=== PATIENT | male | born 1970 | race Two or more races ===

== ENCOUNTER 2019-08-19 12:09 | Emergency (ER) | payer OTHER ==
[~2019-08-19] VITALS: Ht 165.1 cm; Wt 72.0 kg
[2019-08-19 12:43] VITALS: BP 126/83
--- NOTE | 2019-08-19 13:16 | PHYS DOC ---
Past Medical History Past Medical History: No Pertinent History Additional Past Medical Histor: reports no health history (LORI RICHARDSON TACTICAL RESPONSE GROUP OFFICER) Past Surgical History: No Surgical History (LORI RICHARDSON TACTICAL RESPONSE GROUP OFFICER) Smoking Status: Never Smoker Alcohol Use: None (LORI RICHARDSON TACTICAL RESPONSE GROUP OFFICER) General Adult EDM: Chief Complaint: SORE THROAT HPI: HPI: Patient is a 49 year old male who presents with states that he has had a cough, sore throat, runny nose and perceived fever at home. Patient is afebrile here and his vital signs are within normal limits. He states that he is not been around anyone else that is covered positive or has symptoms. Patient states he has not been taking any medications for his symptoms. He states he does not take any medications daily reports no medical history. (LORI RICHARDSON TACTICAL RESPONSE GROUP OFFICER) Review of Systems: Review of Systems: Constitutional: fever or chills. [] HENT: Denies nasal congestion. sore throat. [] Respiratory: cough or denies shortness of breath. [] (LORI RICHARDSON TACTICAL RESPONSE GROUP OFFICER) Heart Score: Risk Factors: Risk Factors: DM, Current or recent (<one month) smoker, HTN, HLP, family history of CAD, obesity. Risk Scores: Score 0 - 3: 2.5% MACE over next 6 weeks - Discharge Home Score 4 - 6: 20.3% MACE over next 6 weeks - Admit for Clinical Observation Score 7 - 10: 72.7% MACE over next 6 weeks - Early Invasive Strategies ([facility]ON[facility] OFFICER) Physical Exam: PE: Constitutional: Well developed, well nourished, no acute distress, non-toxic appearance. [] HENT: Normocephalic, atraumatic, bilateral external ears normal, oropharynx moist, no oral exudates, nose normal. [] Eyes: PERRLA, EOMI, conjunctiva normal, no discharge. [] Neck: Normal range of motion, no tenderness, supple, no stridor. [] Cardiovascular:Heart rate regular rhythm, no murmur [] Lungs & Thorax: Bilateral breath sounds clear to auscultation [] Abdomen: Bowel sounds normal, soft, no tenderness, no masses, no pulsatile masses. [] Skin: Warm, dry, no erythema, no rash. [] Back: No tenderness, no CVA tenderness. [] Extremities: No tenderness, no cyanosis, no clubbing, ROM intact, no edema. [] Neurologic: Alert and oriented X 3, normal motor function, normal sensory function, no focal deficits noted. [] Psychologic: Affect normal, judgement normal, mood normal. [] Normal Physical Exam (LORI RICHARDSON APRN) Current Patient Data: Vital Signs: Vital Signs Date Time Temp Pulse Resp B/P (MAP) Pulse Ox O2 Delivery O2 Flow Rate FiO2 08/19/19 12:43 98.7 75 16 126/83 (97) 98 Room Air 98.7 (LORI RICHARDSON APRN) EKG: EKG: [] (LORI RICHARDSON APRN) Radiology/Procedures: Radiology/Procedures: [] Impression: [facility] [address] [place] [address] IMAGING REPORT Signed PATIENT: CYNTHIA PEARSON ACCOUNT: [id number] : 1970 LOCATION: ER AGE: 49 SEX: M EXAM STATUS: REG ER ORD. PHYSICIAN: LORI RICHARDSON APRN REASON: soa, cough PROCEDURE: PORTABLE CHEST 1V PORTABLE CHEST 1V 08/19/2019 12:52 PM INDICATION: Shortness of air, cough COMPARISON: None available TECHNIQUE: Portable frontal view of the chest is provided. FINDINGS: The cardiomediastinal silhouette is within normal limits. Lungs are clear. Biapical pleural parenchymal scarring is noted. There are no significant pleural effusions. There is no pulmonary vascular congestion. No pneumothorax. No suspicious osseous abnormality. IMPRESSION: There is no acute cardiopulmonary process. Electronically signed by: Ignacio eHrrera MD (08/19/2019 1:29 PM) [facility] DICTATED and SIGNED BY: IGNACIO HERRERA MD DATE: 08/19/19 1329 (LORI RICHARDSON APRN) Course & Med Decision Making: Course & Med Decision Making Pertinent Labs and Imaging studies reviewed. (See chart for details) Patient denies chest pain, shortness of breath, nausea, vomiting, diarrhea, headache, dizziness, vision changes, numbness or tingling. Alert and oriented. Speaks in full clear sentences. Skin pink warm and dry. Ambulatory with a steady gait. Lungs are clear to auscultation all lobes. Patient is wanting to be tested for COVID-19. Patient is stable and he can follow-up with 1 of the outpatient COVID testing clinics. Patient states he works at a [employer]. Throat is reddened but there is no swelling or exudates. [] (LORI RICHARDSON APRN) Dragon Disclaimer: Dragon Disclaimer: This electronic medical record was generated, in whole or in part, using a voice recognition dictation system. (LORI RICHARDSON APRN) Departure Departure Impression: Primary Impression: Sore throat Additional Impression: Rhinorrhea Disposition: 01 HOME, SELF-CARE Condition: STABLE Referrals: NO PCP (PCP) Patient Instructions: Sore Throat Additional Instructions: Take medication as prescribed and with food. Take [id number] cold and cough medication. Take Tylenol or ibuprofen for your pain. Follow-up with primary care physician. He can go to any of the outpatient clinic areas with a test for COVID-19 to be tested. Return to the emergency room for severe shortness of breath or chest pain. Scripts Azithromycin (AZITHROMYCIN TABLET) 250 Mg Tablet 1 PKG PO UD for 5 Days, #6 TAB 0 Refills 2 the first day followed by 1 for days 2-5 Prov: LORI RICHARDSON APRN 08/19/19 Justicifation of Admission Dx: Justifications for Admission: Justification of Admission Dx: N/A (LORI RICHARDSON APRN) Attending Signature Attending Signature I have participated in the care of this patient and I have reviewed and agree with all pertinent clinical information above including history, exam, and recommendations. (DILSHAD PELLETIER DO) LORI RICHARDSON APRN Aug 19, 2019 13:16 DILSHAD PELLETIER DO Aug 19, 2019 14:05
--- NOTE | 2019-08-19 13:32 | RAD ---
PORTABLE CHEST 1V 08/19/2019 12:52 PM INDICATION: Shortness of air, cough COMPARISON: None available TECHNIQUE: Portable frontal view of the chest is provided. FINDINGS: The cardiomediastinal silhouette is within normal limits. Lungs are clear. Biapical pleural parenchymal scarring is noted. There are no significant pleural effusions. There is no pulmonary vascular congestion. No pneumothorax. No suspicious osseous abnormality. IMPRESSION: There is no acute cardiopulmonary process. Electronically signed by: Kaela Sutton MD (08/19/2019 1:29 PM) [facility]
[2019-08-19] MEDS ORDERED: AZIT250T6 PO (13:53)
== END 2019-08-19 14:06 | disposition home or self-care (01) ==
LOC: ER 12:09
DX: J02.9 Acute pharyngitis, unspecified (principal); J34.89 Other specified disorders of nose and nasal sinuses; R05 Cough; R09.89 Other specified symptoms and signs involving the circulatory and respiratory systems
CPT/HCPCS: 71045; 87070; 87880; 99284

== ENCOUNTER 2019-08-27 13:29 | Emergency (ER) | payer OTHER ==
[~2019-08-27] VITALS: Ht 160 cm; Wt 59.0 kg
[~2019-08-27 13:29] MED LIST: AZIT250T6 PO
[2019-08-27 14:13] LABS: BASO % 1 % (0-3); EOS % 0 % (0-3); HEMATOCRIT 39.6 % (39.0-53.0); HEMOGLOBIN 13.5 g/dL (13.0-17.5); LYMPH # 1.2 x10^3/uL (1.0-4.8); LYMPH % 35 % (24-48); MEAN CORPUSCULAR HEMOGLOBIN 27 pg (25-35); MEAN CORPUSCULAR HGB CONC 34 g/dL (31-37); MEAN CORPUSCULAR VOLUME 80 fL (79-100); MONO # 0.3 x10^3/uL (0.0-1.1); MONO % 7 % (0-9); NEUT % 58 % (31-73); PLATELET COUNT 169 x10^3/uL (140-400); RED BLOOD COUNT 4.98 x10^6/uL (4.30-5.70); RED CELL DISTRIBUTION WIDTH 13.2 % (11.5-14.5); WHITE BLOOD COUNT 3.5 x10^3/uL (4.0-11.0)
[2019-08-27 14:20] LABS: BASE EXCESS COOX -1 mmol/L (-3-3); HCO3 COOX 23 mmol/L (21-28); METHEMOGLOBIN 0.4 % (0.0-1.9); OXYHEMOGLOBIN 94.6 %; PCO2 COOX 35 mmHg (35-46); PO2 COOX 73 mmHg (75-108); SAT O2 COOX 95 % (92-99)
--- NOTE | 2019-08-27 14:25 | PHYS DOC ---
Past Medical History Past Medical History: No Pertinent History Additional Past Medical Histor: reports no health history Past Surgical History: No Surgical History Smoking Status: Never Smoker Alcohol Use: None General Adult EDM: Chief Complaint: SHORTNESS OF BREATH HPI: HPI: Patient is a 49 year old male who presents with positive cover test today. He states last 4 days he says shortness of air and chest pain with cough only. He was here on August 18 with rhinorrhea and a sore throat and given azithromycin. He states he took the azithromycin. He states other people in the house also have a sore throat and rhinorrhea. He denies any past medical history and takes no medications daily. Patient denies nausea, vomiting, diarrhea, headache, dizziness, syncope, numbness or tingling, vision changes, fever. He states he has had the chills. Patient is 96% on room air. Review of Systems: Review of Systems: Constitutional: Denies fever or chills. [] Eyes: Denies change in visual acuity. [] HENT: Denies nasal congestion or sore throat. [] Respiratory: Denies cough. + shortness of breath. [] Cardiovascular: chest pain with cough or denies edema. [] GI: Denies abdominal pain, nausea, vomiting, bloody stools or diarrhea. [] : Denies dysuria. [] Musculoskeletal: Denies back pain or joint pain. [] Integument: Denies rash. [] Neurologic: Denies headache, focal weakness or sensory changes. [] Endocrine: Denies polyuria or polydipsia. [] Lymphatic: Denies swollen glands. [] Psychiatric: Denies depression or anxiety. [] Heart Score: HEART Score for Chest Pain: HEART Score for Chest Pain Response (Comments) Value History Slighlty/Non-Suspicious 0 ECG Normal 0 Age >45 - < 65 1 Risk Factors No Risk Factors 0 Troponin < Normal Limit 0 Total 1 Risk Factors: Risk Factors: DM, Current or recent (<one month) smoker, HTN, HLP, family history of CAD, obesity. Risk Scores: Score 0 - 3: 2.5% MACE over next 6 weeks - Discharge Home Score 4 - 6: 20.3% MACE over next 6 weeks - Admit for Clinical Observation Score 7 - 10: 72.7% MACE over next 6 weeks - Early Invasive Strategies Allergies: Allergies: Allergies Coded Allergies Type Severity Reaction Last Updated Verified No Known Drug Allergies 08/27/19 No Physical Exam: PE: Constitutional: Well developed, well nourished, no acute distress, non-toxic appearance. [] HENT: Normocephalic, atraumatic, bilateral external ears normal, oropharynx moist, no oral exudates, nose normal. [] Eyes: PERRLA, EOMI, conjunctiva normal, no discharge. [] Neck: Normal range of motion, no tenderness, supple, no stridor. [] Cardiovascular:Heart rate regular rhythm, no murmur [] Lungs & Thorax: Bilateral upper breath sounds clear and lower diminished to auscultation [] Abdomen: Bowel sounds normal, soft, no tenderness, no masses, no pulsatile mass es. [] Skin: Warm, dry, no erythema, no rash. [] Back: No tenderness, no CVA tenderness. [] Extremities: No tenderness, no cyanosis, no clubbing, ROM intact, no edema. [] Neurologic: Alert and oriented X 3, normal motor function, normal sensory function, no focal deficits noted. [] Psychologic: Affect normal, judgement normal, mood normal. [] Current Patient Data: Labs: Laboratory Tests Test 08/27/19 13:55 White Blood Count 3.5 x10^3/uL (4.0-11.0) L Red Blood Count 4.98 x10^6/uL (4.30-5.70) Hemoglobin 13.5 g/dL (13.0-17.5) Hematocrit 39.6 % (39.0-53.0) Mean Corpuscular Volume 80 fL (79-100) Mean Corpuscular Hemoglobin 27 pg (25-35) Mean Corpuscular Hemoglobin Concent 34 g/dL (31-37) Red Cell Distribution Width 13.2 % (11.5-14.5) Platelet Count 169 x10^3/uL (140-400) Neutrophils (%) (Auto) 58 % (31-73) Lymphocytes (%) (Auto) 35 % (24-48) Monocytes (%) (Auto) 7 % (0-9) Eosinophils (%) (Auto) 0 % (0-3) Basophils (%) (Auto) 1 % (0-3) Neutrophils # (Auto) 2.0 x10^3/uL (1.8-7.7) Lymphocytes # (Auto) 1.2 x10^3/uL (1.0-4.8) Monocytes # (Auto) 0.3 x10^3/uL (0.0-1.1) Eosinophils # (Auto) 0.0 x10^3/uL (0.0-0.7) Basophils # (Auto) 0.0 x10^3/uL (0.0-0.2) Laboratory Tests 08/27/19 13:55 Vital Signs: Vital Signs Date Time Temp Pulse Resp B/P (MAP) Pulse Ox O2 Delivery O2 Flow Rate FiO2 08/27/19 13:45 98.6 83 22 119/82 (94 95 Room Air 98.6 EKG: EK and read by Dr Lorenz as NSR and no STEMI[] Radiology/Procedures: Radiology/Procedures: [] Impression: [facility] [address] [place], [place] [id number] IMAGING REPORT Signed PATIENT: CYNTHIA PEARSON ACCOUNT: [id number] : 1970 LOCATION: ER AGE: 49 SEX: M EXAM STATUS: REG ER ORD. PHYSICIAN: LORI RICHARDSON APRN REASON: SOA, COVID + PROCEDURE: PORTABLE CHEST 1V INDICATION: Reason: SOA, COVID + / Spl. Instructions: / History: COMPARISON: August 19, 2019 FINDINGS: Single view of chest obtained. Hypoexpanded examination. There is some interstitial prominence bilaterally. There is now some apparent nodular opacities including in the left mid to lower lung as well as hazy opacity right lung base. IMPRESSION: * Mild interstitial and patchy nodular opacities. Could be secondary to the focal infiltrate although given the interstitial component mild pulmonary vascular congestion is not excluded. Electronically signed by: Denzel Dolan MD (08/27/2019 2:32 PM) [id number] DICTATED and SIGNED BY: DENZEL DOLAN MD DATE: 08/27/19 1432 Course & Med Decision Making: Course & Med Decision Making Pertinent Labs and Imaging studies reviewed. (See chart for details) COVID-19 CRITERIA: The patient was evaluated during the global COVID-19 pandemic, and that diagnosis was suspected/considered upon their initial presentation. Their evaluation, treatment and testing was consistent with current guidelines for patients who present with complaints or symptoms that may be related to COVID-19. Alert and oriented. Ambulatory with a steady gait. Speaks in full complete sentences. Abdomen soft and nontender. Lungs are clear in upper lobes and diminished in lower lobes. No extremity edema. Dr Lorenz states to not put the patient on another z pack and to put him on doxycycline. I will also put the patient on a medrol dose pack as this is also proven to be effective. Hemodynamically stable. Patient is not hypoxic. Patient to go home and quarantine. Patient to follow-up with primary care prov ronelr. [] Mary Ellen Disclaimer: Mary Ellen Disclaimer: This electronic medical record was generated, in whole or in part, using a voice recognition dictation system. COVID-19 Patient Risks: Age 65 or older: No Sign of co-morbidity: No Exp to person + for COVID: No Exp to PUI: No Travel from affected area: No Lower respiratory symptoms: Yes Fever: No Other: Yes Comments: + COVID TEST PPE Use: Full PPE with N95 mask or PAPR: Yes Departure Departure Impression: Primary Impression: COVID-19 Additional Impressions: Cough Shortness of breath Pneumonia Qualified Codes: J18.9 - Pneumonia, unspecified organism Disposition: 01 HOME, SELF-CARE Condition: STABLE Referrals: UNKNOWN PCP NAME (PCP) Patient Instructions: Pneumonia, Adult Additional Instructions: You have been tested for or diagnosed with COVID-19. It is an infection caused by a new type of coronavirus. COVID-19 will cause cold-like or mild flu symptoms in most. It can cause more severe symptoms like problems breathing in some. There is no treatment for COVID-19. The body will clear the infection over time. Self-care will help to ease discomfort. Steps to Take: Self-Care Rest as needed. Healthy habits may help you feel better. Steps include: Choose healthy foods including fruits and vegetables. Drink water throughout the day. Get plenty of sleep each night. If you smoke, try to quit. It may ease breathing. Avoid alcohol. Keep Others Healthy The virus can spread to others. Droplets are released every time you sneeze or cough. The droplets can get into the mouth, nose, or eyes of people near you and lead to infection. To lower the chances of spreading COVID-19 to others: Stay at home until your doctor has said it is safe to leave. If you tested positive this will mean staying isolated until both of the following are true: At least 7 days have passed since the start of illness. You are free of fever for at least 72 hours without the use of medicine. During this time: - Avoid public areas, events, or transportation. Do not return to work or school until your doctor has said it is safe to do so. - Call ahead if you need to go to a medical center. Let them know you may have COVID-19. It will help them guide you where to go. They may also ask you to wear a facemask when you come to the office. - If you call for emergency medical services, let them know you may have COVID- 19. While at home: - Try to avoid close contact with others. Stay about 6 feet away. - If possible, spend most of your time in a separate room from others. - Use a face mask if you will be in close contact with others such as sharing a room or vehicle. - Have someone wipe down common surfaces in the home. Use household coupon collection clerk every day on areas like doorknobs, counters, or sinks. - Cough or sneeze into a tissue. Throw the tissue away right after use. If a tissue is not available, cough or sneeze into your elbow. - Wash your hands often. Wash them after sneezing or coughing. Use soap and water and wash for at least 20 seconds. Alcohol based hand upholstery cleaner can be used if soap and water is not available. - Do not prepare food for others. Avoid sharing personal items like forks, spoons, or toothbrushes. - Avoid close contact with pets while you are sick. There is no evidence of the virus passing to pets. This is a safety step until more is known about this virus. Isolation can be frustrating. Social interaction can help. Keep in touch with friends and family through phone and tech options. You can still interact with others in your home, just keep a safe distance of about 6 feet. Follow-up: Your doctors office will check in with you to see if there are any changes in your health. You may be asked to keep track of symptoms to share with them. They will also let you know when you are clear to be in public again. Problems to Look Out For: Contact your doctor if your recovery is not going as you expect. Get emergency care if you have problems such as: - Trouble breathing - Nonstop chest pain or pressure - Changes in awareness, confusion, or problems waking - Lips or face have bluish color - Worsening of symptoms If you think you have an emergency, call for emergency medical services right away. As taken from [facility] Methylprednisolone (MEDROL) 4 Mg Tab.ds.pk 1 PKG PO UD, #1 PKG Prov: LORI RICHARDSON APRN 08/27/19 Albuterol Sulfate (Proair Hfa) 8.5 Gm Hfa.aer.ad 1 PUFF INH PRN Q6HRS PRN for SHORTNESS OF BREATH, #1 INHALER Prov: LORI RICHARDSON APRN 08/27/19 Doxycycline Hyclate (DOXYCYCLINE HYCLATE) 100 Mg Tablet 1 TAB PO BID, #14 TAB Prov: LORI RICHARDSON APRN 08/27/19 Justicifation of Admission Dx: Justifications for Admission: Justification of Admission Dx: N/A LORI RICHARDSON APRN Aug 27, 2019 14:25
[2019-08-27 14:26] LABS: CREATININE 0.9 mg/dL (0.7-1.3); GFR 89.7; POTASSIUM 3.5 mmol/L (3.5-5.1)
[2019-08-27 14:28] LABS: ALBUMIN 3.5 g/dL (3.4-5.0); ALBUMIN/GLOBULIN RATIO 0.9 (1.0-1.7); TOTAL BILIRUBIN 0.5 mg/dL (0.2-1.0); TOTAL PROTEIN 7.6 g/dL (6.4-8.2)
--- NOTE | 2019-08-27 14:35 | RAD ---
INDICATION: Reason: SOA, COVID + / Spl. Instructions: / History: COMPARISON: August 19, 2019 FINDINGS: Single view of chest obtained. Hypoexpanded examination. There is some interstitial prominence bilaterally. There is now some apparent nodular opacities including in the left mid to lower lung as well as hazy opacity right lung base. IMPRESSION: * Mild interstitial and patchy nodular opacities. Could be secondary to the focal infiltrate although given the interstitial component mild pulmonary vascular congestion is not excluded. Electronically signed by: Andrea Sykes MD (08/27/2019 2:32 PM) [id number]
[2019-08-27] MEDS ORDERED: DOXY100T PO (14:57)
[2019-08-27] MEDS ORDERED: ALBU2.5V8 INH (14:57)
[2019-08-27] MEDS ORDERED: METH4TAB2 PO (14:57)
[2019-08-27 15:19] VITALS: BP 110/73
--- NOTE | 2019-08-31 15:51 | EKG ---
[facility] [address] [place] [address] Test Date: 2019-08-27 Test Time: 13:48:33 Pat Name: CYNTHIA PEARSON Department: Room: Gender: Chuck Wagon Cook: : 1970 Requested By: LORI RICHARDSON Order Number: [id number] Reading MD: Measurements Intervals [place] Rate: 80 P: 21 SD: 196 QRS: 33 QRSD: 76 T: 24 QT: 352 QTc: 409 Interpretive Statements SINUS RHYTHM OTHERWISE NORMAL ECG RI6.01 No previous ECG available for comparison
== END 2019-08-27 16:05 | disposition home or self-care (01) ==
LOC: ER 13:29
DX: U07.1 COVID-19 (principal); J18.9 Pneumonia, unspecified organism
CPT/HCPCS: 36415; 71045; 80053; 82805; 83605; 84484; 85025; 93005; 99285-25

== ENCOUNTER 2020-03-05 17:56 | Emergency (ER) | payer OTHER ==
[~2020-03-05] VITALS: Ht 167.6 cm; Wt 61.4 kg
[~2020-03-05 17:56] MED LIST changes: +ALBU2.5V8 INH; +DOXY100T PO; +METH4TAB2 PO
[2020-03-05] MEDS ORDERED: FAMOTIDINE 20 MG/2 ML VIAL IVP ONE (18:00)
[2020-03-05] MEDS ORDERED: ONDANSETRON PF 4 MG/2 ML VIAL. IVP ONE (18:00)
[2020-03-05] MEDS ORDERED: IV NORMAL SALINE 1000ML BAG 1,000 ML IV ONE (18:00)
--- NOTE | 2020-03-05 18:04 | PHYS DOC ---
Past Medical History Past Medical History: No Pertinent History Additional Past Medical Histor: reports no health history Past Surgical History: No Surgical History Smoking Status: Never Smoker Alcohol Use: None General Adult EDM: Chief Complaint: ABDOMINAL PAIN HPI: HPI: Patient is a 50 year old male patient presenting to the ED today complaining of nausea vomiting as well as mild intermittent bilateral upper abdominal pain, symptoms began today. Patient denies any fever. Denies any diarrhea. Describes the pain as sharp. Denies anything specifically exacerbating or relieving the pain. Patient is also complaining of slight dizziness. Nothing exacerbating or relieving his dizziness. He has a warm water bottle laying on his abdomen for some relief. Review of Systems: Review of Systems: Constitutional: Denies fever or chills. [] Eyes: Denies change in visual acuity. [] HENT: Denies nasal congestion or sore throat. [] Respiratory: Denies cough or shortness of breath. [] Cardiovascular: Denies chest pain or edema. [] GI: Reports abdominal pain, nausea vomiting, denies any bloody stools or diarrhea : Denies dysuria. [] Musculoskeletal: Denies back pain or joint pain. [] Integument: Denies rash. [] Neurologic: Denies headache, focal weakness or sensory changes. [] Psychiatric: Denies depression or anxiety. [] Heart Score: Risk Factors: Risk Factors: DM, Current or recent (<one month) smoker, HTN, HLP, family history of CAD, obesity. Risk Scores: Score 0 - 3: 2.5% MACE over next 6 weeks - Discharge Home Score 4 - 6: 20.3% MACE over next 6 weeks - Admit for Clinical Observation Score 7 - 10: 72.7% MACE over next 6 weeks - Early Invasive Strategies Allergies: Allergies: Allergies Coded Allergies Type Severity Reaction Last Updated Verified No Known Drug Allergies 08/27/19 No Physical Exam: PE: Constitutional: Well developed, well nourished, no acute distress, non-toxic appearance. [] HENT: Normocephalic, atraumatic, bilateral external ears normal, oropharynx moist, no oral exudates, nose normal. [] Eyes: PERRLA, EOMI, conjunctiva normal, no discharge. [] Neck: Normal range of motion, no tenderness, supple, no stridor. [] Cardiovascular:Heart rate regular rhythm, no murmur [] Lungs & Thorax: Bilateral breath sounds clear to auscultation [] Abdomen: Bowel sounds normal, soft, no tenderness, no masses, no pulsatile masses. [] Skin: Warm, dry, no erythema, no rash. [] Back: No tenderness, no CVA tenderness. [] Extremities: No tenderness, no cyanosis, no clubbing, ROM intact, no edema. [] Neurologic: Alert and oriented X 3, normal motor function, normal sensory function, no focal deficits noted. [] Psychologic: Affect normal, judgement normal, mood normal. [] EKG: EKG: [] Radiology/Procedures: Radiology/Procedures: []PATIENT: CYNTHIA PEARSONACCOUNT: [id number]#: [id number] : 1970 LOCATION: ER AGE: 50 SEX: M EXAM STATUS: REG ER ORD. PHYSICIAN: KALINA KULKARNI APRN REASON: abd pain, n/v, OMNI 300, 75 ML IV PROCEDURE: CT ABD PELV W/ IV CONTRST ONLY CT abdomen and pelvis with contrast. HISTORY: Abdominal pain CT scan of the abdomen pelvis was done using 75 mL Omnipaque 300 contrast. There are small pulmonary nodules in the anterior right lung less than 6 mm. There is mild atelectasis in the lung bases. Fleischner Society guidelines recommend an optional one-year follow-up for high risk individuals only. Liver is normal in appearance. There is no calcified gallstone or gallbladder wall thickening. Spleen is normal in appearance. Adrenal glands are normal. There is no mass or hydronephrosis in the kidneys. There is no small bowel obstruction. There is fluid-filled colon. There is no obstruction. Appendix is fluid-filled and within normal limits in size without acute appendicitis, best seen on the coronal images. IMPRESSION: 1. Diffuse fluid-filled colon. 2. No bowel obstruction or other acute finding. 3. Appendix within normal limits. PQRS Compliance Statement: One or more of the following individualized dose reduction techniques were utilized for this examination: 1. Automated exposure control 2. Adjustment of the mA and/or kV according to patient size 3. Use of iterative reconstruction technique Electronically signed by: Jerry Oliva MD (03/05/2020 8:07 PM) [facility] DICTATED and SIGNED BY: JERRY OLIVA MD DATE: 03/05/[id number] 0 Course & Med Decision Making: Course & Med Decision Making Pertinent Labs and Imaging studies reviewed. (See chart for details) This is a 50-year-old male patient presented to the ED today with nausea vomiting and upper abdominal pain bilaterally, symptoms began today. Also complaining of a slight dizziness. CBC with a WBC of 15.5 with a left shift and bandemia. CMP with nothing really acute. CT of the abdomen and pelvis was noted for fluid in the colon otherwise no acute findings. Discussed case with Dr. García. Discharged on Augmentin and Zofran and dicyclomine. He was tested for COVID-19 and instructed to quarantine himself until he gets results next week. He was provided return precautions. Dragon Disclaimer: Dragon Disclaimer: This electronic medical record was generated, in whole or in part, using a voice recognition dictation system. Departure Departure Impression: Primary Impression: Abdominal pain Qualified Codes: R10.33 - Periumbilical pain Additional Impressions: Vomiting and diarrhea Person under investigation for COVID-19 Disposition: 01 DC HOME SELF CARE/HOMELESS Condition: STABLE Referrals: UNKNOWN PCP NAME (PCP) DARRELL HOUSTON MD follow up in one week Patient Instructions: Diarrhea, Fldl-[id number], Nausea and Vomiting Additional Instructions: You were evaluated in the emergency room and you have symptoms as well as physical findings and test findings suspicious of infectious process. Take the prescribed antibiotics until completed. Keep your hands clean, push fluids. You were tested for COVID-19, we will call you next week with the results. Quarantine yourself until then. Scripts Ondansetron (ONDANSETRON ODT) 4 Mg Tab.rapdis 1 TAB PO PRN Q6-8HRS, #16 TAB Prov: MUTMAAMEAKALINA POLYMERIZATION KETTLE OPERATOR 03/05/20 Dicyclomine Hcl (DICYCLOMINE HCL) 20 Mg Tablet 1 TAB PO TID, #30 TAB 1 Refill Prov: MUTUNGKALINA Harris POLYMERIZATION KETTLE OPERATOR 03/05/20 Amoxicillin/Potassium Clav (AUGMENTIN 875-125 TABLET) 1 Each Tablet 1 TAB PO BID for 10 Days, #20 TAB 0 Refills Prov: KIMBERLYAKALINA POLYMERIZATION KETTLE OPERATOR 03/05/20 MUTKALINA BLACK POLYMERIZATION KETTLE OPERATOR Mar 05, 2020 18:04
[2020-03-05] MEDS ORDERED: MORPHINE SULFATE 4 MG/ML VIAL. IV ONE (18:30)
[2020-03-05 19:08] LABS: BASO % 0 % (0-3); EOS % 0 % (0-3); HEMATOCRIT 48.8 % (39.0-53.0); LYMPH # 0.5 x10^3/uL (1.0-4.8); LYMPH % 3 % (24-48); MEAN CORPUSCULAR HEMOGLOBIN 27 pg (25-35); MEAN CORPUSCULAR HGB CONC 33 g/dL (31-37); MEAN CORPUSCULAR VOLUME 82 fL (79-100); MONO % 7 % (0-9); NEUT # 13.9 x10^3/uL (1.8-7.7); NEUT % 90 % (31-73); PLATELET COUNT 200 x10^3/uL (140-400); RED BLOOD COUNT 5.98 x10^6/uL (4.30-5.70); RED CELL DISTRIBUTION WIDTH 13.3 % (11.5-14.5); WHITE BLOOD COUNT 15.5 x10^3/uL (4.0-11.0)
[2020-03-05 19:16] LABS: CREATININE 0.8 mg/dL (0.7-1.3); GFR 102.3; POTASSIUM 3.8 mmol/L (3.5-5.1)
[2020-03-05 19:19] LABS: ALBUMIN 4.7 g/dL (3.4-5.0); TOTAL BILIRUBIN 0.5 mg/dL (0.2-1.0); TOTAL PROTEIN 9.3 g/dL (6.4-8.2)
[2020-03-05] MEDS ORDERED: IOHEXOL 300 MG/ML 100ML VIAL. IV ONE (19:45)
[2020-03-05 19:47] LABS: % BANDS 12 % (0-9); % EOS 2 % (0-5); % LYMPHS 2 % (24-48); % MONOS 5 % (0-10); % SEGS 79 % (35-66); PLT ESTIMATE ADEQUATE (ADEQUATE); STOMATOCYTES OCC; TOXIC GRANULATION SLIGHT
[2020-03-05] MEDS ORDERED: CONTRAST GIVEN. MC PRN (20:00)
--- NOTE | 2020-03-05 20:15 | RAD ---
CT abdomen and pelvis with contrast. HISTORY: Abdominal pain CT scan of the abdomen pelvis was done using 75 mL Omnipaque 300 contrast. There are small pulmonary nodules in the anterior right lung less than 6 mm. There is mild atelectasis in the lung bases. Fleis chner Society guidelines recommend an optional one-year follow-up for high risk individuals only. Rosa er is normal in appearance. There is no calcified gallstone or gallbladder wall thickening. Spleen is normal in appearance. Adrenal glands are normal. There is no mass or hydronephrosis in the kidneys. There is no small bowel obstruction. There is fluid-filled colon. There is no obstruction. Appendix i s fluid-filled and within normal limits in size without acute appendicitis, best seen on the coronal images. IMPRESSION: 1. Diffuse fluid-filled colon. 2. No bowel obstruction or other acute finding. 3. Appendix within normal limits. PQRS Compliance Statement: One or more of the following individualized dose reduction techniques were utilized for this examinat ion: 1. Automated exposure control 2. Adjustment of the mA and/or kV according to patient size 3. Use of iterative reconstruction technique Electronically signed by: Jerry Oliva MD (03/05/2020 8:07 PM) [facility]
[2020-03-05] MEDS ORDERED: MORPHINE SULFATE 10 MG/ML VIAL. IV ONE (20:45)
[2020-03-05] MEDS ORDERED: DICYCLOMINE HCL 10 MG CAPSULE PO ONE (20:45)
[2020-03-05 21:32] VITALS: BP 108/65
[2020-03-05] MEDS ORDERED: DICY20TA3 PO (21:50)
[2020-03-05] MEDS ORDERED: AMOX1TAB61 PO (21:50)
[2020-03-05] MEDS ORDERED: ONDA4TAB12 PO (21:50)
[2020-03-06] MEDS ORDERED: IOHEXOL 300 MG/ML 100ML VIAL. ONE (00:44)
--- NOTE | 2020-03-07 10:44 | NUR ---
IP: Informed pt of negative COVID test. pt verbalized understanding.
== END 2020-03-05 22:00 | disposition home or self-care (01) ==
LOC: ER 17:56
DX: R10.33 Periumbilical pain (principal); R11.2 Nausea with vomiting, unspecified; R19.7 Diarrhea, unspecified; Z20.828 Contact with and (suspected) exposure to other viral communicable diseases; R42 Dizziness and giddiness
CPT/HCPCS: 74177; 80053; 83690; 85007; 85025; 87040; 96361; 96374; 96375; 96376; 99285; J2270; J2405; J3490; J7030; Q9967; U0003; 36415; C9803

== ENCOUNTER 2020-06-12 22:08 | Emergency (ER) | payer OTHER ==
[~2020-06-12] VITALS: Ht 162.6 cm; Wt 54.1 kg
[~2020-06-12 22:08] MED LIST changes: +AMOX1TAB61 PO; +DICY20TA3 PO; +ONDA4TAB12 PO
[2020-06-12] MEDS ORDERED: IV NORMAL SALINE 1000ML BAG 1,000 ML IV SCH (23:30)
[2020-06-12 23:46] LABS: BASO % 0 % (0-3); EOS # 0.1 x10^3/uL (0.0-0.7); EOS % 1 % (0-3); HEMATOCRIT 37.7 % (39.0-53.0); HEMOGLOBIN 12.6 g/dL (13.0-17.5); LYMPH # 1.1 x10^3/uL (1.0-4.8); LYMPH % 23 % (24-48); MEAN CORPUSCULAR HEMOGLOBIN 27 pg (25-35); MEAN CORPUSCULAR HGB CONC 33 g/dL (31-37); MEAN CORPUSCULAR VOLUME 82 fL (79-100); MONO # 0.6 x10^3/uL (0.0-1.1); MONO % 11 % (0-9); NEUT # 3.2 x10^3/uL (1.8-7.7); NEUT % 65 % (31-73); PLATELET COUNT 167 x10^3/uL (140-400); WHITE BLOOD COUNT 4.9 x10^3/uL (4.0-11.0)
[2020-06-12 23:55] LABS: CALCIUM 8.5 mg/dL (8.5-10.1); CREATININE 0.7 mg/dL (0.7-1.3); GFR 119.4; POTASSIUM 3.5 mmol/L (3.5-5.1)
[2020-06-13] LABS: ALBUMIN 3.6 g/dL (3.4-5.0); ALBUMIN/GLOBULIN RATIO 1.1 (1.0-1.7); MAGNESIUM 2.1 mg/dL (1.8-2.4); TOTAL BILIRUBIN 0.7 mg/dL (0.2-1.0); TOTAL PROTEIN 6.8 g/dL (6.4-8.2)
--- NOTE | 2020-06-13 01:12 | RAD ---
Study: XR CHEST 1V Indication: Chest pain. Comparison: 08/27/2019 Findings: Unremarkable cardiomediastinal silhouette and evelyn. Improved aeration of the lungs from the compariso n. No confluent airspace infiltrate, pleural effusion or pneumothorax. Impression: No acute radiographic abnormality of the chest. Improved appearance of the lungs from 08/27/2019. Electronically signed by: ULYSSES CHUA MD (06/13/2020 1:10 AM) [facility]
[2020-06-13 01:17] VITALS: BP 111/76
--- NOTE | 2020-06-13 01:29 | PHYS DOC ---
Past Medical History Past Medical History: No Pertinent History Additional Past Medical Histor: reports no health history Past Surgical History: No Surgical History Smoking Status: Never Smoker Alcohol Use: None Adult General Chief Complaint Chief Complaint: MULTIPLE COMPLAINTS HPI HPI Patient is a 50 year old male who denies any significant past mental history presenting the emergency department for new onset of flulike illness. Patient states that over the last 24 hours he has developed generalized sensation of fatigue associated with the chest discomfort primarily when he moves or when he coughs. Patient states the cough has been mild intermittent without any productive sputum. Denies any fever or chills. States that he had Covid symptoms few months ago that lasted for approximate 3 weeks. Denies any dizziness or lightheadedness. Review of Systems Review of Systems Constitutional: Denies fever or chills [] Eyes: Denies change in visual acuity, redness, or eye pain [] HENT: Denies nasal congestion or sore throat [] Respiratory: Denies cough or shortness of breath [] Cardiovascular: No additional information not addressed in HPI [] GI: Denies abdominal pain, nausea, vomiting, bloody stools or diarrhea [] : Denies dysuria or hematuria [] Musculoskeletal: Denies back pain or joint pain [] Integument: Denies rash or skin lesions [] Neurologic: Denies headache, focal weakness or sensory changes [] Endocrine: Denies polyuria or polydipsia [] All other systems were reviewed and found to be within normal limits, except as documented in this note. Current Medications Current Medications Current Medications Medications (Trade) Dose Ordered Sig/Konstantin Start Time Stop Time Status Last Admin Dose Admin Sodium Chloride 1,000 ml @ 1,000 mls/hr Q1H 06/12/20 23:30 06/13/20 00:29 DC 06/12/20 23:35 1,000 MLS/HR Allergies Allergies Allergies Coded Allergies Type Severity Reaction Last Updated Verified No Known Drug Allergies 08/27/19 No Physical Exam Physical Exam Constitutional: Well developed, well nourished, no acute distress, non-toxic appearance. [] HENT: Normocephalic, atraumatic, bilateral external ears normal, oropharynx moist, no oral exudates, nose normal. [] Eyes: PERRLA, EOMI, conjunctiva normal, no discharge. [] Neck: Normal range of motion, no tenderness, supple, no stridor. [] Cardiovascular:Heart rate regular rhythm, no murmur [] Lungs & Thorax: Bilateral breath sounds clear to auscultation [] Abdomen: Bowel sounds normal, soft, no tenderness, no masses, no pulsatile masses. [] Skin: Warm, dry, no erythema, no rash. [] Back: No tenderness, no CVA tenderness. [] Extremities: No tenderness, no cyanosis, no clubbing, ROM intact, no edema. [] Neurologic: Alert and oriented X 3, normal motor function, normal sensory function, no focal deficits noted. [] Psychologic: Affect normal, judgement normal, mood normal. [] Current Patient Data Vital Signs Vital Signs Date Time Temp Pulse Resp B/P (MAP) Pulse Ox O2 Delivery O2 Flow Rate FiO2 06/13/20 00:47 72 18 118/75 (89) 99 Room Air 06/12/20 22:40 98.4 98.4 Lab Values Laboratory Tests Test 06/12/20 23:35 White Blood Count 4.9 x10^3/uL (4.0-11.0) Red Blood Count 4.60 x10^6/uL (4.30-5.70) Hemoglobin 12.6 g/dL (13.0-17.5) L Hematocrit 37.7 % (39.0-53.0) L Mean Corpuscular Volume 82 fL (79-100) Mean Corpuscular Hemoglobin 27 pg (25-35) Mean Corpuscular Hemoglobin Concent 33 g/dL (31-37) Red Cell Distribution Width 13.0 % (11.5-14.5) Platelet Count 167 x10^3/uL (140-400) Neutrophils (%) (Auto) 65 % (31-73) Lymphocytes (%) (Auto) 23 % (24-48) L Monocytes (%) (Auto) 11 % (0-9) H Eosinophils (%) (Auto) 1 % (0-3) Basophils (%) (Auto) 0 % (0-3) Neutrophils # (Auto) 3.2 x10^3/uL (1.8-7.7) Lymphocytes # (Auto) 1.1 x10^3/uL (1.0-4.8) Monocytes # (Auto) 0.6 x10^3/uL (0.0-1.1) Eosinophils # (Auto) 0.1 x10^3/uL (0.0-0.7) Basophils # (Auto) 0.0 x10^3/uL (0.0-0.2) Sodium Level 145 mmol/L (136-145) Potassium Level 3.5 mmol/L (3.5-5.1) Chloride Level 107 mmol/L (98-107) Carbon Dioxide Level 31 mmol/L (21-32) Anion Gap 7 (6-14) Blood Urea Nitrogen 10 mg/dL (8-26) Creatinine 0.7 mg/dL (0.7-1.3) Estimated GFR (Cockcroft-Gault) 119.4 BUN/Creatinine Ratio 14 (6-20) Glucose Level 113 mg/dL (70-99) H Calcium Level 8.5 mg/dL (8.5-10.1) Magnesium Level 2.1 mg/dL (1.8-2.4) Total Bilirubin 0.7 mg/dL (0.2-1.0) Aspartate Amino Transferase (AST) 27 U/L (15-37) Alanine Aminotransferase (ALT) 41 U/L (16-63) Alkaline Phosphatase 83 U/L (46-116) Troponin I Quantitative < 0.017 ng/mL (0.000-0.055) QT-Nat-R-Type Natriuretic Peptide 43 pg/mL (0-124) Total Protein 6.8 g/dL (6.4-8.2) Albumin 3.6 g/dL (3.4-5.0) Albumin/Globulin Ratio 1.1 (1.0-1.7) Lipase 129 U/L (73-393) Laboratory Tests 06/12/20 23:35 Laboratory Tests 06/12/20 23:35 EKG EKG [] Radiology/Procedures Radiology/Procedures [] Course & Med Decision Making Course & Med Decision Making Pertinent Labs and Imaging studies reviewed. (See chart for details) 50-year-old male presenting to emergency department nonspecific flulike illness. Denies any chest pain or weakness. Labs reviewed and unremarkable. EKG and chest x-ray without any significant findings. At this time feel the patient be safely discharged home Dragon Disclaimer Dragon Disclaimer This electronic medical record was generated, in whole or in part, using a voice recognition dictation system. Departure Departure Impression: Primary Impression: Viral syndrome Disposition: HOME / SELF CARE / HOMELESS Condition: GOOD Referrals: JAYDEN JOHNSON MD (PCP) Patient Instructions: Viral Syndrome Additional Instructions: EMERGENCY DEPARTMENT GENERAL DISCHARGE INSTRUCTIONS Thank you for coming to [facility] Emergency Department (ED) today and trusting us with you care. We trust that you had a positive experience in our Emergency Department. If you wish to speak to the department management, you may call the Director at [phone]. YOUR FOLLOW UP INSTRUCTIONS ARE FOLLOWS: 1. Do you have a private Doctor? If you do not have a private doctor, please ask for a resource list of physicians or clinics that may be able to assist you with follow up care. 2. The Emergency Physicain has interpreted your x-rays. The X-Ray specialist will also review them. If there is a change in the findings, you will be notified in 48 hours when at all possible. 3. A lab test or culture has been done, your results will be reviewed and you will be notified if you need a change in treatment. ADDITIONAL INSTRUCTIONS AND INFORMATION: 1. Your care today has been supervised by a physician who is specially trained in emergency care. Many problems require more than one evaluation for a complete diagnosis and treatment. We recommend that you schedule your follow up appointment as recommended to ensure complete treatment of you illness or injury. If you are unable to obtain follow up care and continue to have a problem, or if your condition worsens, we recommend that you return to the ED. 2. We are not able to safely determine your condition over the phone nor are we able to give sound medical advice over the phone. For these safety reasons, if you call for medical advice we will ask you to come to the ED for further evaluation. 3. If you have any questions regarding these discharge instructions please call the ED at [phone]. SAFETY INFORMATION: In the interest of safety, wellness, and injury prevention; we encourage you to wear your sealbelt, if you smoke; quite smoking, and we encourage family to use a protective helmet for bicycling and other sporting events that present an increased risk for head injury. IF YOUR SYMPTOMS WORSEN OR NEW SYMPTOMS DEVELOP, OR YOU HAVE CONCERNS ABOUT YOUR CONDITION; OR IF YOUR CONDITION WORSENS WHILE YOU ARE WAITING FOR YOUR FOLLOW UP APPOINTMENT; EITHER CONTACT YOUR PRIMARY CARE DOCTOR, THE PHYSICIAN WHOSE NAME AND NUMBER YOU WERE GIVEN, OR RETURN TO THE ED IMMEDIATELY. ADALGISA SANTIAGO MD Jun 13, 2020 01:29
--- NOTE | 2020-06-13 03:53 | EKG ---
[facility] [address] [place] [address] Test Date: 2020-06-12 Test Time: 23:09:11 Pat Name: CYNTHIA PEARSON Department: Room: Gender: M Packaging Technician: : 1970 Requested By: ADALGISA SANTIAGO Order Number: [id number] Reading MD: Measurements Intervals [place] Rate: 83 P: 31 PA: 202 QRS: 46 QRSD: 70 T: 22 QT: 324 QTc: 386 Interpretive Statements SINUS RHYTHM NORMAL ECG RI6.02 No previous ECG available for comparison
--- NOTE | 2020-06-14 09:20 | NUR ---
IP: Informed pt of negative COVID test. Pt verbalized understanding.
== END 2020-06-13 02:05 | disposition home or self-care (01) ==
LOC: ER 22:08
DX: B34.9 Viral infection, unspecified (principal); Z20.822 Contact with and (suspected) exposure to COVID-19; R07.89 Other chest pain; R20.2 Paresthesia of skin; R53.83 Other fatigue
CPT/HCPCS: 36415; 71045; 80053; 83690; 83735; 83880; 84484; 85025; 93005; 96360; 99285; J7030; U0003; U0005

== ENCOUNTER → 2020-12-15 | Outpatient (CLI) | payer OTHER ==
--- NOTE | 2020-12-15 09:38 | RAD ---
EXAM: ULTRASOUND ABDOMEN COMPLETE CLINICAL HISTORY: Reason: ELEVATED TRANSAMINASE / Spl. Instructions: / History: COMPARISON: None available. TECHNIQUE: Ultrasound of the upper abdomen was performed. FINDINGS: The visualized pancreas grossly appears unremarkable. The visualized aorta, IVC within normal limits of dimension. There is mild increased echogenicity identified throughout the liver likely hepatic sera atosis. The gallbladder is mildly distended. The common bile duct measures 2.5 mm in transverse dimen taylor. The right kidney measures 10.0 x 4.9 x 5.2 cm . The left kidney measures 10 cm 4.2 x 5.7 cm. IMPRESSION: 1. Mild hepatic steatosis. Electronically signed by: Devin Dobbs MD (12/15/2020 9:36 AM) [id number]
== END ==
LOC: US 08:49
PROVIDERS: ATTEND Family Medicine
DX: K76.0 Fatty (change of) liver, not elsewhere classified (principal); K82.8 Other specified diseases of gallbladder; R74.01 Elevation of levels of liver transaminase levels
CPT/HCPCS: 76700